=== PATIENT | female | born 1980 | race Two or more races ===

== ENCOUNTER 2019-11-05 08:55 | Emergency (ER) | payer OTHER ==
[~2019-11-05] VITALS: Ht 167.6 cm; Wt 56.7 kg
== END 2019-11-05 10:37 | disposition home or self-care (01) ==
LOC: ER 08:55
DX: H60.591 Other noninfective acute otitis externa, right ear (principal)

== ENCOUNTER 2024-11-01 06:30 | Emergency (ER) | payer OTHER ==
[~2024-11-01] VITALS: Ht 162.6 cm; Wt 59.9 kg
[2024-11-01 07:09] VITALS: BP 122/87; O2SAT 98
[2024-11-01] MEDS ORDERED: ELVITEG/COB/EMTRI/TENOFO DISOP 1 UDTAB TABLET PO ONE (08:45)
[2024-11-01] MEDS ORDERED: DOXYCYCLINE HYCLATE 100MG EACH PO SCH (09:44)
[2024-11-01] MEDS ORDERED: FF) NORGESTREL-ETHINYL ESTRADIOL TAB PO SCH (09:45)
[2024-11-01] MEDS ORDERED: CEFTRIAXONE SODIUM 500 MG VIAL IM ONE (09:45)
[2024-11-01 11:01] LABS: BASO % 0.6 % (0.1-1.2); EOS # 0.13 (0.04-0.54); EOS % 1.8 % (0.7-7.0); LYMPH # 1.02 (1.18-3.74); LYMPH % 14.1 % (19.3-53.1); MEAN PLATELET VOLUME 10.50 fl (9.4-12.4); MONO # 0.52 (0.24-0.82); MONO % 7.2 % (4.7-12.5); NEUT # 5.49 (1.56-6.13); NEUT % 76.2 % (34.0-71.1); RED CELL DISTRIBUTION WIDTH 11.0 % (11.6-14.4)
[2024-11-01 11:32] LABS: ALT/SGPT 22 U/L (12-78); AST/SGOT 14 U/L (15-37); BILIRUBIN TOTAL 1.07 mg/dL (0.3-1.2); BUN CREA RATIO 23 (7.0-25.0); CREATININE SERUM 0.73 mg/dL (0.55-1.02); GFR 87.43; GLOBULINA 3.6 G/DL (2.4-3.5); GLUCOSE FASTING 109 mg/dL (65-100); OSMOLALITY SERUM 291 MOSM/KG (275-295)
[2024-11-01 11:37] LABS: HCG QUANTITATIVE < 1 mUI/mL (1-3)
[2024-11-01] MEDS ORDERED: PEPCID AC20 MG PO (13:44)
== END 2024-11-01 19:13 | disposition home or self-care (01) ==
LOC: ER 06:30
PROVIDERS: General Practice
DX: Z04.41 Encounter for examination and observation following alleged adult rape (principal)